=== PATIENT | female | born 1960 | race Caucasian/White ===

== ENCOUNTER 2018-01-29 02:41 | Emergency (ER) | payer SELFPAY ==
[~2018-01-29] VITALS: Ht 160 cm; Wt 90.0 kg
[2018-01-29] MEDS ORDERED: IBUPROFEN 600MG TABLET PO STA (06:58)
[2018-01-29 08:24] VITALS: BP 144/64
== END 2018-01-29 08:47 | disposition home or self-care (01) ==
LOC: ER 02:41
DX: S40.022A Contusion of left upper arm, initial encounter (principal); M25.512 Pain in left shoulder; Y08.89XA Assault by other specified means, initial encounter; Y93.89 Activity, other specified; Y92.89 Other specified places as the place of occurrence of the external cause; Y99.8 Other external cause status
CPT/HCPCS: 71046; 73030; 73060; 93005; 99284